=== PATIENT | female | born 1980 | race Caucasian/White ===

== ENCOUNTER 2021-08-30 17:42 | Outpatient (REF) | payer OTHER, SELFPAY ==
[2021-09-01 18:57] LABS: COVID-19 RT-PCR UVMMC Result Positive (Negative)
== END 2021-08-30 17:43 | disposition home or self-care (01) ==
LOC: NCHCN 17:42
PROVIDERS: Visit Provider Family Medicine
DX: Z20.822 Contact with and (suspected) exposure to COVID-19 (principal)
CPT/HCPCS: U0003